=== PATIENT | male | born 2000 | race Two or more races ===

== ENCOUNTER 2023-12-23 13:42 | Outpatient (OUT) | payer BC, SELFPAY ==
--- NOTE | 2023-12-23 13:51 | XR_ITS ---
The [address] [address] Patient Name: CECILIO VAUGHN MRN: [id number] date: 2000 Sex: M Assigned Patient Location: RAD Current Patient Location: RAD Accession/Order Number: [id number] Exam Date: 12/23/2023 13:54 Report Date: 12/23/2023 14:39 At the request of: JOSTIN SINHA Procedure: XR chest 2V EXAM: XR chest 2V HISTORY: Positive TB test COMPARISON: None. TECHNIQUE: Upright PA and lateral chest x-ray FINDINGS: The heart is not enlarged and the vasculature is not distended. No acute infiltrate, effusion or pneumothorax is identified. The osseous structures are grossly intact. XR/XR chest 2V IMPRESSION: No acute infiltrate or evidence of cardiac decompensation. There is no evidence of tuberculosis. Direct comparison with a previous study may be helpful in confirming the chronicity of these findings. Electronically authenticated by: ERNST WLIL Date: 12/23/2023 14:39
== END 2023-12-23 13:43 | disposition home or self-care (01) ==
PROVIDERS: PCP Nurse Practitioner Primary Care; Visit Provider Nurse Practitioner Primary Care
DX: R76.11 Nonspecific reaction to tuberculin skin test without active tuberculosis (principal)
CPT/HCPCS: 71046